=== PATIENT | male | born 1965 | race Caucasian/White ===

== ENCOUNTER 2018-08-20 06:47 | Day surgery (SDC) | payer OTHER ==
[~2018-08-20] VITALS: Ht 175.3 cm; Wt 89.8 kg
[2018-08-20] MEDS ORDERED: MIDAZOLAM 2 MG/2 ML VIAL ONE (09:42)
[2018-08-20] MEDS ORDERED: fentaNYL 0.05 MG/ML VIAL ONE (09:42)
[2018-08-20] MEDS ORDERED: LIDOCAINE 2% 100 MG/5 ML UJET TP ONE (09:42)
[2018-08-20] MEDS ORDERED: fentaNYL 0.05 MG/ML VIAL IVP ONE (13:35)
== END 2018-08-20 10:30 | disposition home or self-care (01) ==
LOC: MDS 06:47 → MMU 06:54 → MDS 10:30
PROVIDERS: ATTEND Internal Medicine Gastroenterology
DX: Z12.11 Encounter for screening for malignant neoplasm of colon (principal); K57.30 Diverticulosis of large intestine without perforation or abscess without bleeding; E66.9 Obesity, unspecified; Z68.29 Body mass index [BMI] 29.0-29.9, adult; Z72.89 Other problems related to lifestyle; Z98.890 Other specified postprocedural states
CPT/HCPCS: 45378; J3010; J2250